=== PATIENT | male | born 1970 | race Caucasian/White ===

== ENCOUNTER 2018-09-05 07:11 | Outpatient (CLI) | payer OTHER | END 2018-09-05 07:22 | disposition home or self-care (01) | LOC: SONOGRAMA 07:11 | DX: E04.1 Nontoxic single thyroid nodule (principal) ==

== ENCOUNTER 2020-10-23 08:21 | Outpatient (CLI) | payer OTHER | END 2020-10-23 08:28 | disposition home or self-care (01) | LOC: SONOGRAMA 08:21 | PROVIDERS: ATTEND Pathology Anatomic Pathology & Clinical Pathology | DX: E04.1 Nontoxic single thyroid nodule (principal) ==